=== PATIENT | female | born 1970 | race African-American/Black ===

== ENCOUNTER 2017-05-20 06:51 | Inpatient (IN) ==
[2017-05-14 11:14] LABS: Basophils % 0.5 % (0.0-0.8); Eosinophils # 0.2 10*3/uL (0.0-0.87); Hematocrit 41.1 VOL% (35.7-47.0); Hemoglobin 13.9 GM/DL (12.0-16.0); Immature Granulocytes % 0.2 %; Immature Granulocytes Absolute 0.01 #; Lymphocytes # 2.2 10*3/uL (1.4-4.0); Lymphocytes % 33.5 % (21.3-54.2); Mean Corpuscular HGB Conc 33.8 GM/DL (32-36); Mean Corpuscular Hemoglobin 29 PG (27-34); Mean Corpuscular Volume 85.8 FL (87-102); Mean Platelet Volume 11.3 FL (9.6-12.0); Monocytes # 0.6 10*3/uL (0.11-0.8); Monocytes % 8.4 % (1.7-12.7); Neutrophils # 3.6 10*3/uL (1.4-7.4); Neutrophils % 54.4 % (38.7-73.9); Platelet Count 296 T/CUMM (130-400); Red Blood Count 4.79 MC/CUMM (3.8-5.5); Red Cell Distribution Width 14.2 % (9.3-17.3); White Blood Count 6.6 T/CUMM (4-12)
--- NOTE | 2017-05-14 11:17 | Order Completion Report ---
See report scanned to EMR
[2017-05-14 11:23] LABS: Apearance,Urine CLEAR (Clear); Bacteria,Urine Occasional /HPF (Few); Bilirubin,Urine Negative (Negative); Blood, Urine Small mg/dL (Negative); Glucose,Urine (UA) Negative (Negative); Hyaline Casts,Urine 1 /LPF (0-3); Ketones,Urine Negative (Negative); Mucus,Urine Occasional /LPF (Occasional); Nitrite,Urine Negative (Negative); Protein,Urine Negative; RBC,Urine <1 /HPF (0-4); Squamous Epithelial Cell,Urine Occasional /HPF (0-10); Urine Color Yellow (Yellow); Urine Urobilinogen < 2.0 EU/DL (0.2-1.0); WBC,Urine 1 /HPF (0-6)
[2017-05-14 11:37] LABS: Alanine Aminotransferase 26 U/L (13-56); Albumin 3.6 G/DL (3.4-5.0); Alkaline Phosphatase 73 U/L (45-117); Aspartate Amino Transferase 14 U/L (0-37); Bilirubin,Total < 0.39 MG/DL (0.2-1.0); Blood Urea Nitrogen 13 MG/DL (7-18); Calcium 9.3 MG/DL (8.5-10.1); Cholesterol 206 MG/DL (50-200); Glucose 108 MG/DL (74-106); HDL Cholesterol 59 MG/DL (40-60); Osmolality,Calculated 281.3 MOS/KG (273-304); Potassium 3.7 MMOL/L (3.5-5.1); Risk Ratio 3.49; Sodium 141 MMOL/L (136-145); Total Protein 7.3 G/DL (6.4-8.3); Triglycerides 160 MG/DL (2-150)
[2017-05-14 12:26] LABS: HIV Antigen/Antibody Result Nonreactive (Nonreactive)
--- NOTE | 2017-05-14 14:13 | XRay Report ---
2 view chest 05/14/2017 1137 AM Indication: Preoperative evaluation Comparison: Not available Findings: Cardiomediastinal contours are normal. Lungs are clear bilaterally. . No acute osseous abnormalities. Visualized upper abdomen demonstrates no acute pathology. Impression: Normal chest PROCEDURE INTERPRETED AT [facility] DEPARTMENT OF RADIOLOGY Final Report Signed by: Meg Forrester MD
[~2017-05-20 06:51] MED LIST: AMPICILLIN/SULBACTAM 3,000 MG VIAL ONE; AMPICILLIN/SULBACTAM 3,000 MG in SODIUM CHLORIDE 0.9% 100 ML IV ONE; SODIUM CHLORIDE 0.9% 50 ML IV ONE
[2017-05-20] MEDS ORDERED: LACTATED RINGERS 1,000 ML IV SCH (07:30)
[2017-05-20] MEDS ORDERED: LORazepam 1 MG TABLET PO ONE (09:02)
[2017-05-20] MEDS ORDERED: FAMOTIDINE 20 MG TABLET PO ONE (09:02)
[2017-05-20] MEDS ORDERED: FAMOTIDINE 20 MG TABLET ONE (09:41)
[2017-05-20] MEDS ORDERED: LORazepam 1 MG TABLET ONE (09:41)
[2017-05-20] MEDS ORDERED: MICROFIBRILLAR COLLAGEN POWDER 1 GM CAN TOP ONE (12:18)
[2017-05-20] MEDS ORDERED: DEXAMETHASONE 10 MG/1 ML VIAL ONE (12:25)
[2017-05-20] MEDS ORDERED: LIDOCAINE 2% 5 ML VIAL ONE (12:25)
[2017-05-20] MEDS ORDERED: ONDANSETRON 4 MG/2 ML VIAL ONE ×3 (12:25→14:14)
[2017-05-20] MEDS ORDERED: ROCURONIUM 100 MG/10 ML VIAL IV ONE ×2 (12:25→14:07)
[2017-05-20] MEDS ORDERED: SUCCINYLCHOLINE 200 MG/10 ML VIAL ONE ×2 (12:25→14:07)
--- NOTE | 2017-05-20 14:00 | Operative Note ---
Date of procedure: 05/20/17 Procedure: Preoperative diagnosis: [] Multiple uterine fibroids Postoperative diagnosis: Same, awaiting final path Anesthesia: General. endotracheal anesthesia Estimated blood loss: [] 250 Surgeon: Dr. Short Findings: [] Multiple uterine fibroid Procedure: Total abdominal hysterectomy and also bilateral salpingo-oophorectomy The risks benefits and indications and alternatives the procedure were reviewed with the patient and informed consent was obtained. The patient was taken to the operating room with IV running and a Vaughan catheter in place. Patient was placed in supine position, given general anesthesia, prepped and draped in the usual sterile fashion. An abdominal incision was made approximately 2 cm above the symphysis pubis and extended sharply to the rectus fascia. The fascia was then excised bilaterally with the curved Holley scissors. And the muscles of the anterior abdominal wall were in the midline by sharp and blunt dissection. Peritoneum was grasped between 2 pickups, elevated and entered sharply with the scalpel. The pelvis was examined with the findings noted above. A abdominal retractor was placed into the incision and the bowel packed away with moist laparotomy sponges. [] A tenaculum was placed on the cornea and used for retraction. The round ligaments on both sides were clamped, transected and suture ligated with 0 Vicryl the anterior leaf of the broad ligament was incised along the bladder was reflection to the midline from both sides. The bladder was then gently dissected off the lower uterine segment and the cervix with a sponge stick. The infundibulopelvic ligaments on both sides were then doubly clamped, transected and suture ligated with 0 Vicryl. Hemostasis was visualized. The uterine arteries were skeletonized bilaterally, clamped with Aliyah clamps, transected and suture ligated with 0 Vicryl and, hemostasis was assured. The uterosacral ligament were clamped on both sides, transected, and suture ligated in a similar fashion the cervix and uterus were amputated with cautery. The vaginal cuff angles were closed with ijkjnw-us-wzsof stitches of 0 Vicryl and were transfixed to the ipsilateral cardinal and uterosacral ligaments. The remainder of the vaginal cuff was closed with a series of interrupted 0 Vicryl [id number] sutures hemostasis was assured. The ureters were identified bilaterally were well within normal limits the pelvis was irrigated copiously with warm normal saline. All laparotomy sponges and instruments were removed from the abdomen. The fascia was closed with running 0 Vicryl, and hemostasis was assured the skin was closed with barrington. Sponges, lap, needle and instrument counts were correct -2. The patient was extubated in the operating room was taken to the PAC unit, awake and in stable condition.. Surgeon / Physician: Jose Short Results - Labs CBC & BMP: 05/14/17 11:01 05/14/17 11:01 Discharge Plan - Discharge Medications No Action Lisinopril 20 mg PO DAILY Bisoprol/Hydrochlorothiazide [Bisoprolol-Hctz 10-6.25 mg Tab] 1 each PO DAILY - Follow Up or Referral - Forms/Instructions
[2017-05-20] MEDS ORDERED: BENZOCAINE/MENTHOL LOZENGE 18/BOX PO PRN (14:01)
[2017-05-20] MEDS ORDERED: BISACODYL 10 MG SUPP RECTAL PRN (14:01)
[2017-05-20] MEDS ORDERED: ACETAMINOPHEN 325 MG TABLET PO PRN (14:01)
[2017-05-20] MEDS ORDERED: ONDANSETRON 4 MG/2 ML VIAL IV PRN ×2 (14:01→14:24)
[2017-05-20] MEDS ORDERED: PROPOFOL 200 MG/20 ML VIAL IV ONE (14:05)
[2017-05-20] MEDS ORDERED: GLYCOPYRROLATE 0.4 MG/2 ML VIAL ONE (14:06)
[2017-05-20] MEDS ORDERED: DESFLURANE 1 UNIT/15 MINUTE INH ONE (14:06)
[2017-05-20] MEDS ORDERED: NEOSTIGMINE 10 MG/10 ML VIAL ONE ×2 (14:06→14:07)
[2017-05-20] MEDS ORDERED: ACETAMINOPHEN 1,000 MG/100 ML VIAL IV ONE (14:06)
[2017-05-20] MEDS ORDERED: fentaNYL 100 MCG/2 ML VIAL ONE (14:06)
[2017-05-20] MEDS ORDERED: LACTATED RINGERS 1,000 ML IV ONE (14:07)
--- NOTE | 2017-05-20 14:09 | Anesthesia Post-Op ---
Anesthesia Post OP - Post Ansesthetic Evaluation Patient seen in post op: Yes Resp: within normal limits CV: within normal limits Mental: within normal limits Temp: within normal limits Ycvn-Jk-Cebusetft: within normal limits Nausea and Vomiting: within normal limits Pain: within normal limits
[2017-05-20] MEDS ORDERED: HYDROmorphone 2 MG/1 ML VIAL ONE (14:14)
[2017-05-20] MEDS ORDERED: KETOROLAC 30 MG/1 ML VIAL ONE (14:14)
[2017-05-20] MEDS: HYDROmorphone 2 MG/1 ML VIAL IV PRN ×3 (14:17→18:16)
[2017-05-20] MEDS ORDERED: KETOROLAC 30 MG/1 ML VIAL IV ONE (14:25)
[2017-05-20 14:44] LABS: Apearance,Urine CLEAR (Clear); Bilirubin,Urine Negative (Negative); Blood, Urine Negative (Negative); Glucose,Urine (UA) Negative (Negative); Ketones,Urine Negative (Negative); Mucus,Urine Occasional /LPF (Occasional); Nitrite,Urine Negative (Negative); Protein,Urine Negative; RBC,Urine <1 /HPF (0-4); Urine Color Yellow (Yellow); Urine Specific Gravity 1.009 (1.001-1.035); Urine Urobilinogen < 2.0 EU/DL (0.2-1.0); WBC,Urine <1 /HPF (0-6)
[2017-05-20] MEDS ORDERED: NALOXONE 0.4 MG/ML VIAL IV PRN (14:50)
[2017-05-20] MEDS ORDERED: HYDROmorphone PCA 30 MG/30 ML SYRINGE IV SCH ×2 (14:55→15:00)
[2017-05-20] MEDS: LACTATED RINGERS 1,000 ML IV SCH ×2 (17:45→17:50)
[2017-05-20 21:55] LABS: Basophils % 0.2 % (0.0-0.8); Hematocrit 41.1 VOL% (35.7-47.0); Hemoglobin 13.9 GM/DL (12.0-16.0); Immature Granulocytes % 0.6 %; Immature Granulocytes Absolute 0.07 #; Lymphocytes # 0.8 10*3/uL (1.4-4.0); Lymphocytes % 6.7 % (21.3-54.2); Mean Corpuscular HGB Conc 33.8 GM/DL (32-36); Mean Corpuscular Hemoglobin 29 PG (27-34); Mean Corpuscular Volume 85.8 FL (87-102); Monocytes # 0.2 10*3/uL (0.11-0.8); Monocytes % 1.8 % (1.7-12.7); Neutrophils # 11.1 10*3/uL (1.4-7.4); Neutrophils % 90.7 % (38.7-73.9); Platelet Count 298 T/CUMM (130-400); Red Blood Count 4.79 MC/CUMM (3.8-5.5); White Blood Count 12.2 T/CUMM (4-12)
[2017-05-20 23:40] LABS: Band Neutrophils 2 % (0-10); Lymphocytes 8 % (20-55); Segmented Neutrophils 90 % (50-85)
[2017-05-20 23:41] LABS: Platelet Estimate Normal; Total Cells Counted 100
[2017-05-21] MEDS ORDERED: HYDROmorphone 2 MG/1 ML VIAL IV PRN (01:26)
[2017-05-21] MEDS: LACTATED RINGERS 1,000 ML IV SCH (01:29)
[2017-05-21 05:03] LABS: Basophils % 0.1 % (0.0-0.8); Hemoglobin 12.9 GM/DL (12.0-16.0); Immature Granulocytes % 0.5 %; Immature Granulocytes Absolute 0.08 #; Lymphocytes # 1.1 10*3/uL (1.4-4.0); Lymphocytes % 7.5 % (21.3-54.2); Mean Corpuscular HGB Conc 33.1 GM/DL (32-36); Mean Corpuscular Hemoglobin 29 PG (27-34); Mean Corpuscular Volume 86.5 FL (87-102); Mean Platelet Volume 11.4 FL (9.6-12.0); Monocytes # 0.9 10*3/uL (0.11-0.8); Monocytes % 5.8 % (1.7-12.7); Neutrophils # 12.8 10*3/uL (1.4-7.4); Neutrophils % 86.1 % (38.7-73.9); Platelet Count 290 T/CUMM (130-400); Red Blood Count 4.51 MC/CUMM (3.8-5.5); White Blood Count 14.9 T/CUMM (4-12)
--- NOTE | 2017-05-21 08:04 | Anesthesia Post-Op ---
Anesthesia Post OP - Post Ansesthetic Evaluation Patient seen in post op: Yes Resp: within normal limits CV: within normal limits Mental: within normal limits Temp: within normal limits Drhg-Uo-Neeqamcum: within normal limits Nausea and Vomiting: within normal limits Pain: within normal limits
[2017-05-21] MEDS: IBUPROFEN 800 MG TABLET PO PRN (09:31)
[2017-05-21] MEDS: SIMETHICONE CHEW 80 MG TABLET PO PRN ×2 (09:51→20:00)
[2017-05-21] MEDS: DOCUSATE SODIUM 100 MG CAPSULE PO PRN (09:51)
[2017-05-21] MEDS: MAGNESIUM HYDROXIDE SUSP 30 ML UDCUP PO PRN ×2 (09:51→20:00)
[2017-05-21] MEDS ORDERED: LISINOPRIL 20 MG TABLET PO SCH ×2 (10:00→12:30)
[2017-05-21] MEDS: BISOPROLOL/HCTZ 10-6.25 MG TABLET PO SCH ×2 (12:01→12:58)
[2017-05-21] MEDS ORDERED: BISOPROLOL/HCTZ 10-6.25 MG TABLET PO SCH (12:30)
[2017-05-22] MEDS: SIMETHICONE CHEW 80 MG TABLET PO PRN (05:00)
[2017-05-22] MEDS ORDERED: LISINOPRIL 20 MG TABLET PO SCH (09:00)
[2017-05-22] MEDS ORDERED: BISOPROLOL/HCTZ 10-6.25 MG TABLET PO SCH (09:00)
[2017-05-22] MEDS: METOCLOPRAMIDE 10 MG TABLET PO SCH ×2 (10:02→17:50)
[2017-05-22] MEDS ORDERED: MAGNESIUM CITRATE 300 ML BOTTLE PO ONE (10:19)
--- NOTE | 2017-05-22 11:06 | Progress Note ---
Family Medicine PN Sub Interval history: Postoperative day #2 Status post GLORIA/BSO secondary to large uterine fibroids Incision sites intact, abdomen benign, bowel sounds are quiet, no bowel movement at this time. Extremities well with no limits neurologic grossly intact Assessment plan We will assist patient with her bowel movements possible bili of discharge today or tomorrow. Exam (Progress Note) - Constitutional Vitals: Period Temp Pulse Resp BP Sys/Gates Pulse Ox Last 24 Hr 97.5 F-98.4 F 62-89 18-20 145-166/69-93 95-99 Results - Labs CBC & BMP: 05/21/17 03:49 05/14/17 11:01 Quality Measures - VTE Contraindication to Pharmacological VTE Prophylaxis: Clinical assessment deems Pt at low risk, no prophalaxis needed Specialty Discharge - Follow Up or Referrals Follow up with: Jose Short MD [Physician] - 05/27/17 2:00 pm
--- NOTE | 2017-05-22 11:18 | Pathology Report from [facility] ---
[facility] [place] : [id number] PATIENT NAME : Saundra Chapa ORDERING DR : MARION RHODES MD CLINICAL HX: Uterine fibroids, cyst, enlarged uterus POST-OP DX: Same SPECIMEN INFO: Uterus, cervix, bilateral ovaries GROSS DESCRIPTION: Received in formalin labeled SAUNDRA CHAPA is a 441 gm uterus with unattached cervix measuring 12.5 x 10.5 x 9.0 cm when reconstructed. The serosa is red werner and free of adhesions. The cervix measures 4.4 cm. The cervical os measures 0.6 cm. The endometrial cavity has an average mucosal thickness of 0.2 cm. Sectioning reveals multiple myometrial nodules measuring up to 5.0 x 4.0 cm. The ovaries are received separately in the specimen container. The first measures 5.9 x 4.0 cm. Sectioning reveals no gross abnormalities. The adjacent fallopian tube is fimbriated and measures 3.5 x 0.6 cm. The second ovary measures 6.0 x 3.5 cm. Sectioning reveals a hemorrhagic cyst measuring 1.0 cm. The adjacent fallopian tube is fimbriated and measures 4.0 x 0.6 cm. Sections submitted A-Cervix, B&C-Endomyometrium, D- Nodules, E-1st ovary and tube, F-2nd ovary, G-2nd tube DIAGNOSIS FOR SAUNDRA CHAPA: UTERUS, CERVIX, BILATERAL FALLOPIAN TUBES & OVARIES : Chronic cystic cervicitis with squamous metaplasia. Mid secretory endometrium. Superficial adenomyosis. Leiomyomas. 1st ovary with fibrosis; fallopian tube. 2nd ovary with fibrosis and a luteal cyst; fallopian tube. COLLECTED DATE: 05/21/2017 [facility] REPORT DATE: 05/22/2017 ELECTRONICALLY SIGNED BY: Shantanu Campa M.D. 05/22/2017 - 9:18:43 [facility] CENTERJunito
[2017-05-22] MEDS: IBUPROFEN 800 MG TABLET PO PRN (14:03)
[2017-05-22] MEDS: DOCUSATE SODIUM 100 MG CAPSULE PO PRN (20:43)
[2017-05-23] MEDS: IBUPROFEN 800 MG TABLET PO PRN (00:06)
[2017-05-23] MEDS: METOCLOPRAMIDE 10 MG TABLET PO SCH (03:58)
[2017-05-23 07:46] VITALS: BP 148/84
--- NOTE | 2017-05-23 09:21 | Discharge Summary ---
Hospital Course - Hospital Course Hospital Course: Postop day #3 Status post GLORIA/BSO second large uterine fibroids Lungs are clear cardiac exam benign Abdomen soft, incision sites intact Extremities well with no limits neurologic grossly intact Assessment plan Status post GLORIA/BSO We will have this patient return office in 1 week for staple removal. Risks benefits thoroughly discussed postop instructions were also given. Specialty Discharge - Follow Up or Referrals Follow up with: Jose Short MD [Physician] - 05/27/17 2:00 pm Discharge Plan - Discharge Data Condition at Discharge: Stable Discharge Diet: advance to your usual diet Activity: resume usual activities as tolerated Hygiene: may shower Weight Bearing at Discharge: weight bear as tolerated Driving: not until seen by doctor Contact your physician if you experience:: fever over 101, Bleeding - Discharge Medications New Ibuprofen Tab [Motrin Tab] 800 mg PO Q8H PRN #30 tablet PRN Reason: Pain Mild To Moderate (1-7) HYDROcodone/ACETAMIN 5-325 [[place] 5-325] 1 tablet PO Q4H PRN #30 tablet PRN Reason: Pain Moderate (4-7) No Action Lisinopril 20 mg PO DAILY Bisoprol/Hydrochlorothiazide [Bisoprolol-Hctz 10-6.25 mg Tab] 1 each PO DAILY - Follow Up or Referral Follow Up: Jose Short MD [Physician] - 05/27/17 2:00 pm - Forms/Instructions Instructions: Abdominal Hysterectomy (DC) Exam - Constitutional Vitals: Period Temp Pulse Resp BP Sys/Gates Pulse Ox Last 24 Hr 96.9 F-97.8 F 53-62 16-20 138-160/80-93 95-97 DS: Provider Date of admission: 05/20/17 14:00 Primary care physician: Rory Duncan MD Attending physician on admission: Jose Short MD Discharging clinician: Jose Short MD
== END 2017-05-23 10:50 | disposition home or self-care (01) | DRG 743 ==
LOC: N.OR 06:51 → N.SDSINP 06:53 → N.OB 15:02
PROVIDERS: ADMIT Obstetrics & Gynecology; ATTEND Obstetrics & Gynecology

== ENCOUNTER 2022-03-24 15:06 | Observation (INO) ==
[2022-03-24 16:09] LABS: Basophils % 0.6 % (0.0-0.8); Eosinophils # 0.1 10*3/uL (0.0-0.87); Hematocrit 45.3 VOL% (35.7-47.0); Hemoglobin 14.7 GM/DL (12.0-16.0); Immature Granulocytes % 0.3 %; Immature Granulocytes Absolute 0.02 #; Lymphocytes # 2.5 10*3/uL (1.4-4.0); Lymphocytes % 35.3 % (21.3-54.2); Mean Corpuscular HGB Conc 32.5 GM/DL (32-36); Mean Corpuscular Volume 88.6 FL (87-102); Monocytes # 0.8 10*3/uL (0.11-0.8); Monocytes % 11.5 % (1.7-12.7); Neutrophils % 50.3 % (38.7-73.9); Platelet Count 185 T/CUMM (130-400); Red Blood Count 5.11 MC/CUMM (3.8-5.5)
[2022-03-24 16:13] LABS: Alanine Aminotransferase 26 U/L (13-56); Albumin 3.5 G/DL (3.4-5.0); Alkaline Phosphatase 103 U/L (45-117); Aspartate Amino Transferase 14 U/L (0-37); Bilirubin,Total < 0.39 MG/DL (0.20-1.00); Blood Urea Nitrogen 16 MG/DL (7-18); Calcium 9.5 MG/DL (8.5-10.1); Carbon Dioxide 26 MMOL/L (21-32); Chloride 106 MMOL/L (98-107); Glucose 107 MG/DL (74-106); Osmolality,Calculated 279.4 MOS/KG (273-304); Potassium 2.9 MMOL/L (3.5-5.1); Sodium 140 MMOL/L (136-145); Total Protein 7.1 G/DL (6.4-8.2)
[2022-03-24] MEDS ORDERED: POTASSIUM CHLORIDE 20 MEQ TABLET PO STA (17:51)
[2022-03-24] MEDS ORDERED: SODIUM CHLORIDE 0.9% 1,000 ML IV STA (17:52)
[2022-03-24] MEDS ORDERED: levETIRAcetam 500 MG/5 ML VIAL IV ONE (17:56)
[2022-03-24 18:12] LABS: Mucus,Urine Occasional /LPF (Occasional); RBC,Urine <1 /HPF (0-4); Squamous Epithelial Cell,Urine Occasional /HPF (0-10); Urine Appearance Clear (Clear); Urine Color Yellow (Yellow); Urine pH 5.5 (4.5-8.0)
[2022-03-24 18:13] LABS: Bilirubin,Urine Negative (Negative); Blood, Urine Negative (Negative); Glucose,Urine (UA) 500 mg/dL (Negative); Ketones,Urine Negative (Negative); Nitrite,Urine Negative (Negative); Protein,Urine Negative (Negative); Urine Specific Gravity 1.025 (1.001-1.035); Urine Urobilinogen 0.2 eU/dL (<2.0)
[2022-03-24 18:25] LABS: Barbiturates Screen,Urine Negative (Negative); Benzodiazepines Screen,Urine Negative (Negative); Cannabinoid Screen,Urine Negative (Negative); Opiate Screen,Urine Negative (Negative); Phencyclidine Screen,Urine Negative (Negative)
[2022-03-24] MEDS ORDERED: ACETAMINOPHEN 325 MG TABLET PO PRN (20:31)
[2022-03-24] MEDS ORDERED: hydrALAZINE 20 MG/1 ML VIAL IV PRN (20:31)
[2022-03-24] MEDS ORDERED: MAGNESIUM SULF RIDER 4 GM/100 ML PREMIX IV PRN (20:31)
[2022-03-24] MEDS ORDERED: ONDANSETRON 4 MG/2 ML VIAL IV PRN (20:31)
[2022-03-24] MEDS ORDERED: ALUMINUM/MAGNES/SIMETH MAX STR 30 ML UDCUP PO PRN (20:31)
[2022-03-24] MEDS ORDERED: GLUCAGON 1 MG VIAL IM PRN (20:31)
[2022-03-24] MEDS ORDERED: MAGNESIUM SULF RIDER 2 GM/50 ML PREMIX IV PRN (20:31)
[2022-03-24] MEDS ORDERED: POTASSIUM CHLORIDE RIDER 10 MEQ/100 ML PREMIX IV PRN (20:31)
[2022-03-24] MEDS ORDERED: LORazepam 2 MG/1 ML VIAL IV PRN (20:37)
[2022-03-24] MEDS ORDERED: DEXTROSE 10% 250 ML BAG IV PRN (21:01)
[2022-03-24] MEDS: INSULIN REGULAR 100 UNIT/ML SUBCUT SCH (23:19)
[2022-03-24] MEDS: DOCUSATE SODIUM 100 MG CAPSULE PO SCH (23:19)
[2022-03-24] MEDS: ENOXAPARIN 40 MG/0.4 ML SYRINGE SUBCUT SCH (23:19)
[2022-03-25 01:02] LABS: Basophils % 0.3 % (0.0-0.8); Eosinophils # 0.1 10*3/uL (0.0-0.87); Eosinophils % 1.5 % (0.00-10.9); Hematocrit 43.8 VOL% (35.7-47.0); Hemoglobin 14.3 GM/DL (12.0-16.0); Immature Granulocytes % 0.4 %; Immature Granulocytes Absolute 0.03 #; Lymphocytes # 2.7 10*3/uL (1.4-4.0); Lymphocytes % 35.2 % (21.3-54.2); Mean Corpuscular HGB Conc 32.6 GM/DL (32-36); Mean Corpuscular Volume 88.1 FL (87-102); Monocytes # 0.6 10*3/uL (0.11-0.8); Neutrophils % 54.6 % (38.7-73.9); Platelet Count 280 T/CUMM (130-400); Red Blood Count 4.97 MC/CUMM (3.8-5.5); Red Cell Distribution Width 14.1 % (9.3-17.3); White Blood Count 7.8 T/CUMM (4-12)
[2022-03-25 01:28] LABS: Calcium 9.4 MG/DL (8.5-10.1); Potassium 3.5 MMOL/L (3.5-5.1); Thyroid Stimulating Hormone 1.08 uIU/ml (0.358-3.74)
[2022-03-25] MEDS: INSULIN REGULAR 100 UNIT/ML SUBCUT SCH ×4 (07:41→21:59)
[2022-03-25] MEDS: levETIRAcetam 500 MG TABLET PO SCH ×2 (08:46→21:58)
[2022-03-25] MEDS: DOCUSATE SODIUM 100 MG CAPSULE PO SCH ×2 (08:46→21:58)
[2022-03-25] MEDS: ATORVASTATIN 10 MG TABLET PO SCH ×2 (08:47→09:52)
[2022-03-25] MEDS: PANTOPRAZOLE 40 MG TABLET PO SCH (08:47)
[2022-03-25] MEDS ORDERED: amLODIPine 10 MG TABLET PO SCH (09:00)
[2022-03-25] MEDS: LOSARTAN 50 MG TABLET PO SCH (10:56)
[2022-03-25] MEDS ORDERED: ATORVASTATIN 10 MG TABLET PO SCH (21:00)
[2022-03-25] MEDS: ENOXAPARIN 40 MG/0.4 ML SYRINGE SUBCUT SCH (21:59)
[2022-03-26 04:50] LABS: Basophils % 0.3 % (0.0-0.8); Eosinophils # 0.2 10*3/uL (0.0-0.87); Eosinophils % 2.2 % (0.00-10.9); Hematocrit 42.3 VOL% (35.7-47.0); Hemoglobin 13.6 GM/DL (12.0-16.0); Immature Granulocytes % 0.3 %; Immature Granulocytes Absolute 0.02 #; Lymphocytes # 2.5 10*3/uL (1.4-4.0); Lymphocytes % 36.8 % (21.3-54.2); Mean Corpuscular HGB Conc 32.2 GM/DL (32-36); Mean Corpuscular Volume 88.9 FL (87-102); Mean Platelet Volume 11.3 FL (9.6-12.0); Monocytes # 0.7 10*3/uL (0.11-0.8); Neutrophils % 50.4 % (38.7-73.9); Platelet Count 279 T/CUMM (130-400); Red Blood Count 4.76 MC/CUMM (3.8-5.5); Red Cell Distribution Width 13.8 % (9.3-17.3); White Blood Count 6.9 T/CUMM (4-12)
[2022-03-26 05:07] LABS: Calcium 8.7 MG/DL (8.5-10.1); Osmolality,Calculated 294.4 MOS/KG (273-304); Potassium 3.4 MMOL/L (3.5-5.1)
[2022-03-26] MEDS: POTASSIUM CHLORIDE 20 MEQ TABLET PO PRN ×3 (07:38→12:13)
[2022-03-26] MEDS: INSULIN REGULAR 100 UNIT/ML SUBCUT SCH ×2 (08:32→11:27)
[2022-03-26] MEDS: DOCUSATE SODIUM 100 MG CAPSULE PO SCH (09:44)
[2022-03-26] MEDS: LOSARTAN 50 MG TABLET PO SCH (09:44)
[2022-03-26] MEDS: levETIRAcetam 500 MG TABLET PO SCH (09:44)
[2022-03-26] MEDS: PANTOPRAZOLE 40 MG TABLET PO SCH (09:44)
[2022-03-26 11:42] VITALS: BP 160/68
[2022-03-26] MEDS ORDERED: BISOPROLOL 5 MG TABLET PO SCH (12:00)
== END 2022-03-26 16:00 | disposition home or self-care (01) ==
LOC: EDSEX → EDUNIT# → EDBD → N.TELES 15:06 → N.ED 15:06 → SUATTDRO 20:31 → N.TELES 23:30 → N.2W 03-25 09:51
PROVIDERS: ADMIT Family Medicine; ATTEND Internal Medicine